=== PATIENT | male | born 1930 | race Caucasian/White ===

== ENCOUNTER 2018-04-19 10:46 | Inpatient (IN) | payer OTHER, BC ==
--- NOTE | 2018-04-19 10:48 | EDPHY ---
H & P Time Seen by Provider: 04/19/18 10:47 HPI/ROS: CHIEF COMPLAINT: Elevated creatinine HISTORY OF PRESENT ILLNESS: Patient called [facility] today because he had hematuria, they came to his house and i-STAT creatinine was 2.3 and he is sent for evaluation. [facility] say he has left lower quadrant abdominal pain but the patient tells me his belly does not hurt, he has no flank pain or abdominal pain, it hurt a little bit when they pressured hard on his left lower quadrant. He otherwise says he feels fine. No dysuria or fever. REVIEW OF SYSTEMS: Eye: no change in vision ENT: no sore throat Cardiac: no chest pain or syncope Pulmonary: no cough or SOB Abdomen: no vomiting, diarrhea, abdominal pain Musculoskeletal: no back pain Skin: no rash or bruising Neuro: no headache Constitutional: no fever : HPI A comprehensive 10 point review of systems is otherwise negative aside from elements mentioned in the history of present illness. 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 Eyes: No scleral icterus. ENT, Mouth: Normal mucous membranes. Respiratory: Normal respiratory effort, breath sounds equal, lungs are clear to auscultation. Cardiovascular: Regular rate and rhythm. Gastrointestinal: Abdomen is soft and non tender. No blood at the urethral meatus. Neurological: Alert, face symmetric, normal motor and sensory in extremities. Skin: No petechiae or bruising. Musculoskeletal: No peripheral edema. Psychiatric: Not agitated. Emergency Department course/MDM: CBC and chemistry, abdominal pelvis CT without IV contrast. Case management to problem solve for his daughter's care. 1113: CT shows bilateral hydronephrosis and large bladder, bladder outlet obstruction; Priyanka. Blanchard catheter placed in the emergency department. Likely acute kidney injury from bilateral renal obstruction. Possibly due to blood clots from UTI, on Xarelto. Constitutional: Initial Vital Signs Temperature (C) 37.1 C 04/19/18 10:50 Heart Rate 64 04/19/18 10:50 Respiratory Rate 16 04/19/18 10:50 Blood Pressure 168/88 H 04/19/18 10:50 O2 Sat (%) 94 04/19/18 10:50 O2 Delivery Mode Room Air Allergies/Adverse Reactions: aminophylline Allergy (Verified 04/19/18 10:50) aspirin Allergy (Verified 04/19/18 10:50) Sulfa (Sulfonamide Antibiotics) Allergy (Verified 04/19/18 10:50) Home Medications: Medication Instructions Recorded Bumetanide [Bumex (*)] 1 mg PO ,04/19/18 Carvedilol [Coreg (*)] 6.25 mg PO BID 04/19/18 Cholecalciferol Vit D3 [Vitamin D3 2,000 units PO HS 04/19/18 2000 units tab (OTC)] Cyanocobalamin [Vitamin B12 (*)] 1,000 mcg PO DAILY@18 04/19/18 Herbals/Supplements -Info Only 1 ea PO DAILY 04/19/18 Potassium Chloride 20 meq PO ,,04/19/18 Rivaroxaban [Xarelto] 20 mg PO HS 04/19/18 Sotalol HCl [Betapace 80 MG (*)] 80 mg PO BID 04/19/18 Valsartan 160 mg PO DAILY 04/19/18 Medical Decision Making - Diagnostics Imaging Results: Imaging Impressions Abdomen/Pelvis CT 04/19/18 10:48 Impression: 1. Enlarged prostate with features of chronic outflow obstruction and marked distention of the urinary bladder, ureters, and renal pelves bilaterally. No calculi identified. 2. Multiple bilateral cortical renal cysts. A 14-mm solid-appearing nodule arises from the posterior cortex of the mid left kidney, indeterminate for complex cystic etiology versus renal cell malignancy. Consider additional imaging with multiphasic CT, MRI, or sonography. Results called to Dr. Jad Newman at 11:20 a.m. Attention: This CT examination is specifically designed to evaluate patients who are clinically suspected of having acute obstructive uropathy. This examination does not use radiographic contrast, and as such, provides only a limited evaluation of the abdomen, pelvis, and retroperitoneum. If there is further clinical suspicion for pathological conditions other than obstructive uropathy, a complete CT evaluation of the abdomen and pelvis utilizing intravenous, oral, and rectal contrast should be considered. Imaging: Discussed imaging studies w/ grease packer Radiologist Differential Diagnosis: Differential for hematuria considered including but not limited to coagulopathy , UTI, renal colic, renal carcinoma or bladder carcinoma Consult/Admit Bed Type: [place] [id number] - Data Points Laboratory Results: Laboratory Results 04/19/18 11:14 04/19/18 11:14 04/19/18 04/19/18 04/19/18 11:14 11:14 11:14 WBC 10.81 10^3/uL H 10^3/uL (3.80-9.50) RBC 4.08 10^6/uL L 10^6/uL (4.40-6.38) Hgb 12.6 g/dL L g/dL (13.7-17.5) Hct 37.4 % L % (40.0-51.0) MCV 91.7 fL fL (81.5-99.8) MCH 30.9 pg pg (27.9-34.1) MCHC 33.7 g/dL g/dL (32.4-36.7) RDW 13.3 % % (11.5-15.2) Plt Count 163 10^3/uL 10^3/uL (150-400) MPV 10.5 fL fL (8.7-11.7) Neut % (Auto) 80.6 % H % (39.3-74.2) Lymph % (Auto) 9.4 % L % (15.0-45.0) [place] % (Auto) 9.1 % % (4.5-13.0) Eos % (Auto) 0.2 % L % (0.6-7.6) Baso % (Auto) 0.3 % % (0.3-1.7) Nucleat RBC Rel Count 0.0 % % (0.0-0.2) Absolute Neuts (auto) 8.72 10^3/uL H 10^3/uL (1.70-6.50) Absolute Lymphs (auto) 1.02 10^3/uL 10^3/uL (1.00-3.00) Absolute Monos (auto) 0.98 10^3/uL H 10^3/uL (0.30-0.80) Absolute Eos (auto) 0.02 10^3/uL L 10^3/uL (0.03-0.40) Absolute Basos (auto) 0.03 10^3/uL 10^3/uL (0.02-0.10) Absolute Nucleated RBC 0.00 10^3/uL 10^3/uL (0-0.01) Immature Gran % 0.4 % % (0.0-1.1) Immature Gran # 0.04 10^3/uL 10^3/uL (0.00-0.10) PT 19.2 SEC H SEC (12.0-15.0) INR 1.60 H (0.83-1.16) APTT 40.0 SEC H SEC (23.0-38.0) Sodium 138 mEq/L mEq/L (135-145) Potassium 4.2 mEq/L mEq/L (3.5-5.2) Chloride 106 mEq/L mEq/L (97-110) Carbon Dioxide 25 mEq/l mEq/l (22-31) Anion Gap 7 mEq/L mEq/L (6-14) BUN 42 mg/dL H mg/dL (7-23) Creatinine 2.3 mg/dL H mg/dL (0.7-1.3) Estimated GFR 27 Glucose 118 mg/dL H mg/dL (70-100) Calcium 8.8 mg/dL mg/dL (8.5-10.4) Urine Color Urine Appearance Urine pH Ur Specific [place] Urine Protein Urine Ketones Urine Blood Urine Nitrate Urine Bilirubin Urine Urobilinogen Ur Leukocyte Esterase Urine RBC Urine WBC Ur Epithelial Cells Urine Glucose 04/19/18 10:55 WBC RBC Hgb Hct MCV MCH MCHC RDW Plt Count MPV Neut % (Auto) Lymph % (Auto) [place] % (Auto) Eos % (Auto) Baso % (Auto) Nucleat RBC Rel Count Absolute Neuts (auto) Absolute Lymphs (auto) Absolute Monos (auto) Absolute Eos (auto) Absolute Basos (auto) Absolute Nucleated RBC Immature Gran % Immature Gran # PT INR APTT Sodium Potassium Chloride Carbon Dioxide Anion Gap BUN Creatinine Estimated GFR Glucose Calcium Urine Color RED Urine Appearance TURBID Urine pH 7.0 (5.0-7.5) Ur Specific [place] 1.011 (1.002-1.030) Urine Protein 2+ H (NEGATIVE) Urine Ketones NEGATIVE (NEGATIVE) Urine Blood 3+ H (NEGATIVE) Urine Nitrate NEGATIVE (NEGATIVE) Urine Bilirubin NEGATIVE (NEGATIVE) Urine Urobilinogen NEGATIVE EU EU (0.2-1.0) Ur Leukocyte Esterase 2+ H (NEGATIVE) Urine RBC 50-182 /hpf H /hpf (0-3) Urine WBC 50-182 /hpf H /hpf (0-3) Ur Epithelial Cells NONE SEEN /lpf /lpf (NONE-1+) Urine Glucose NEGATIVE (NEGATIVE) Medications Given: Discontinued Medications Ceftriaxone Sodium/Dextrose (Rocephin 1 Gm (Premix)) 50 mls @ 100 mls/hr IV EDNOW ONE PRN Reason: Protocol Stop: 04/19/18 11:54 Last Admin: 04/19/18 11:39 Dose: 50 mls Oxycodone HCl (Oxycodone Ir) 5 mg PO EDNOW ONE Stop: 04/19/18 11:38 Last Admin: 04/19/18 11:39 Dose: 5 mg Oxycodone HCl (Oxycodone Ir) 5 mg PO EDNOW ONE Stop: 04/19/18 12:24 Last Admin: 04/19/18 12:26 Dose: 5 mg Departure - Departure Disposition: [facility] Inpatient Acute Clinical Impression: Acute kidney injury, Bladder outlet obstruction Urinary tract infection Qualifiers: Urinary tract infection type: site unspecified Hematuria presence: with hematuria Qualified Code(s): N39.0 - Urinary tract infection, site not specified
[2018-04-19] MEDS ORDERED: oxyCODONE IR 5 MG TAB PO ONE ×2 (11:37→12:23)
[2018-04-19 11:39] LABS: PLATELET COUNT 163 10^3/uL (150-400)
[2018-04-19 11:45] LABS: INR 1.6 (0.83-1.16); PROTIME(PATIENT) 19.2 SEC (12.0-15.0)
[2018-04-19] MEDS ORDERED: LIDOCAINE 2% JELLY 20 ML (UROJECT) UR ONE (14:23)
[2018-04-19] MEDS ORDERED: ONDANSETRON DISINTEGRATING 4 MG TAB PO PRN (14:24)
[2018-04-19] MEDS ORDERED: ONDANSETRON 4 MG/2 ML VIAL IVP PRN (14:24)
[2018-04-19] MEDS ORDERED: NS 1,000 ML IV SCH (14:30)
--- NOTE | 2018-04-19 14:36 | ASMTCMCOM ---
CM Note CM Note Notes: Pt presented to the ED for elevated Creatinine. Pt had called [facility] to his residence for hematuria, they did an iStat and his Cr was 2.3). Pt admitted for MARLEN, hematuria (possibly r/t UTI; pt is on Xarelto), bilateral hydronephrosis, and bladder outlet obstruction. Pt had a Blanchard placed and abdominal CT completed. Pt's PMH includes A-Fib, CHF, HTN, asthma. Pt is from [place], [place] but has been living with and caring for his daughter, Michell ([phone]), at her apartment/condo. Pt states he is Eulalia's primary caregiver due to her morbid obesity, fibromyalgia, etc. Pt states that Eulalia's cousin, Debbie, is coming up from [facility] to help her out during the day today but will not be able to stay with her tonight. Eulalia receives skilled HC RN/PT/OT through [facility] and also has a private [employer] but they only are there during the day. Pt is concerned about being admitted and Eulalia not having anyone at home to help her get in and out of the bed, to the commode, etc. This CM has met Eulalia in the past and assisted her w/coordinating home care assistance, etc. Per pt's request, this CM called Eulalia and discussed that she would probably have to call non-skilled HC agencies and see if anyone was available to help the patient tonight, tomorrow and however long pt might be in the hospital; Eulalia is aware it will be private pay. This CM provided several non-skilled HC agencies' contact information to Eulalia. Pt appreciative of assistance w/contacting an Eulalia . Exact DC needs TBD. PT/OT evals ordered. CM to follow. Date Signed: 04/19/2018 02:36 PM Electronically Signed By:Baylee Banerjee RN
--- NOTE | 2018-04-19 15:45 | GHP ---
DATE OF ADMISSION: 04/19/2018 The patient, pleasant 87-year-old gentleman with a history of systolic heart failure; atrial fibrilla tion, on anticoagulation; and BPH who presents with hematuria he has had over the last couple of days , a little bit of dysuria and pain with urination. He noticed brown urine this morning and then dark er urine later today. He has not had fever or chills. He has had some general malaise. He has continued to take his diuretics, ARB, and blood thinners. About 5 years ago he had some office procedure designed to dilate prostate. It was not a TURP. He d escribes a period of going through a few diapers overnight with what sounds like obstructive incontin ence. REVIEW OF SYSTEMS: Complete 10-point review of systems conducted, negative except as noted in the HP I. PAST MEDICAL HISTORY: 1. Systolic heart failure with an EF that was about 30%, now normalized to 50%. Etiology uncertain. 2. Atrial fibrillation. On anticoagulation. 3. Hypertension. 4. BPH. ALLERGIES: Aminophylline, aspirin, sulfa. HOME MEDICATIONS: Potassium chloride, Bumex, rivaroxaban, valsartan, carvedilol, vitamin D3, cyanoco balamin, and sotalol. 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 He has been in [facility] for last 2 years taking care of his daughter, who needs 24-hour care. He does describe a bit o f caregiver burnout. He used to drink alcohol regularly but quit 5 years ago with the onset of his h eart issues. He does not smoke cigarettes. FAMILY HISTORY: Parents . PHYSICAL EXAM: VITAL SIGNS: Temp 37.1. Blood pressure 168/88. Pulse 64. Breathing 16 times a min pelon; 94% on room air. GENERAL: No acute distress. HEENT: Sclerae anicteric. Oropharynx clear. M ucous membranes are moist. NECK: Supple without lymphadenopathy or JVD. LUNGS: Clear to auscultat ion bilaterally. HEART: S1. S2. ABDOMEN: Soft. Nontender. Nondistended. There is no suprapubi c tenderness. LOWER EXTREMITIES: Without edema. Calves are nontender. GI: Blanchard has pink urine i n it without evidence of clots. LABS: Sodium 138, potassium 4.2, chloride 106, bicarb 25, BUN 42, creatinine 2.3 with unknown baseli ne, glucose 118. INR is 1.6. UA shows 2+ leukocyte esterase, 50-180 red cells, 50-180 white cells. White count 10.8, hematocrit 37, platelets are 163,000. Abdominal CT shows dilated urinary system with evidence of chronic urinary obstruction. There are mu ltiple renal cysts and a solid 14 mm mass on the posterior cortex of the mid left kidney. I discusse d the case with Dr. Jad Newman. ASSESSMENT AND PLAN: An 87-year-old gentleman presents with hematuria, urinary obstruction, acute ki dney injury, and solid renal mass. 1. Obstructive uropathy. I think this is the source of his kidney injury probably in the setting of ongoing diuretic and angiotensin receptor natalie therapy. We will hold his diuretics, hold his ang iotensin receptor natalie. Given gentle intravenous fluids, and Blanchard has been placed. We will repe at the value in the morning. I suspect that the etiology is a clot. He currently has a 1-way Blanchard in place that is draining good urine. I have instructed the nurse to flush it 3 times every shift, a nd we will follow. If it stops working, it is probably reasonable to pursue 3-way Blanchard. 2. Urinary tract infection. The patient has pyuria. This is possibly the source of his genitourina ry bleeding in the setting of blood thinners. He does describe some irritative voiding symptoms. We will go ahead and give him ceftriaxone. 3. Heart failure. The patient has a history of systolic heart failure that is well treated and comp ensated. We will hold his diuretic and angiotensin receptor natalie, but I suspect we will resume th em. In the meantime, will be judicious with intravenous fluids. 4. Renal mass is concerning for cancer. The patient needs a contrasted CT. It cannot be done at th is point in time. I have discussed this at length with him. 5. Prophylaxis. Hold pharmacologic prophylaxis. DISPOSITION: Inpatient status. /[id number]/MODL
[2018-04-19] MEDS: CYANO/VITAMIN B12 1000 MCG TAB PO SCH (17:32)
[2018-04-19] MEDS: ACETAMINOPHEN 325 MG TAB PO PRN (20:22)
[2018-04-19] MEDS: CARVEDILOL 6.25 MG TAB PO SCH (20:24)
[2018-04-19] MEDS: CHOLECALCIFEROL VIT D3 2,000 UNITS TAB/CAP PO SCH (20:25)
[2018-04-19] MEDS: SOTALOL HCL 80 MG TAB PO SCH (20:25)
[2018-04-20] MEDS: ACETAMINOPHEN 325 MG TAB PO PRN (04:13)
[2018-04-20 05:44] LABS: PLATELET COUNT 159 10^3/uL (150-400)
[2018-04-20 05:50] LABS: INR 1.19 (0.83-1.16); PROTIME(PATIENT) 15.3 SEC (12.0-15.0)
[2018-04-20] MEDS: SOTALOL HCL 80 MG TAB PO SCH ×2 (08:05→20:52)
[2018-04-20] MEDS: CARVEDILOL 6.25 MG TAB PO SCH ×2 (08:05→20:54)
[2018-04-20] MEDS ORDERED: Herbals/Supplements -Info Only PO SCH (09:00)
[2018-04-20] MEDS: HYDROmorphONE/DILAUDID 1 MG/ML INJ IVP PRN ×4 (09:51→22:28)
[2018-04-20] MEDS ORDERED: LIDOCAINE 2% JELLY 20 ML (UROJECT) UR ONE (09:52)
--- NOTE | 2018-04-20 10:01 | PDMN ---
Medical Necessity Medical necessity: Pt meets IP criteria as of 04/19/18 per MD and MCG M-300 (UTI) ; est los > 2 mn for ongoing tx and management of UTI with pyuria, hematuria, MARLEN, urinary obstruction and solid renal mass; requiring IV ABX, muller catheter with need for frequent irrigation, medication management, serial labs, and management of chronic conditions including CHF, afib on AC, HTN, and BPH.
--- NOTE | 2018-04-20 10:07 | HOSPPROG ---
Hospitalist Progress Note Assessment/Plan: 87 yo M w obstructive uropathy, probable uti, bleeding bleeding: chely source of obstruction still w clots place three way muller w [facility] urology eval 04/21 if not clearing ultimately needs cystoscopy to r/u bladder malignancy MARLEN: obtrcutive plus lasix/arb euvolemic repeat u/s today to eval for ongoing hydro infection: pyuria: ceftriaxone day 2 sCHF: hold IVF continue to hold lasix and ARB restart as allowed by renal function AF: clinically in sinus dispo: inpt Subjective: still bloody urine, clots. blader spasms Objective: Vital Signs Temp Pulse Resp BP Pulse Ox 36.5 C 60 16 148/75 H 94 04/20/18 07:40 04/20/18 07:40 04/20/18 07:40 04/20/18 07:40 04/20/18 07:40 Laboratory Results 04/20/18 04:55 04/20/18 04:55 04/19/18 04/20/18 04/21/18 05:59 05:59 05:59 Intake Total 850 Output Total 4300 Balance -3450 PT 15.3 SEC (12.0-15.0) H 04/20/18 04:55 INR 1.19 (0.83-1.16) H 04/20/18 04:55 - Physical Exam Constitutional: no apparent distress, appears nourished Eyes: PERRL, anicteric sclera Ears, Nose, Mouth, Throat: moist mucous membranes, hearing normal Cardiovascular: regular rate and rhythym, no murmur, rub, or gallop Respiratory: no respiratory distress, no rales or rhonchi Gastrointestinal: normoactive bowel sounds, soft, non-tender abdomen Genitourinary: muller in urethra, other ( punch colored urine) Skin: warm, normal color Musculoskeletal: full muscle strength, no muscle tenderness Neurologic: AAOx3 Psychiatric: interacting appropriately Lymph, Heme, Immunologic: no cervical LAD ICD10 Worksheet Patient Problems: Problems Problem Status Onset Acute kidney injury Acute Bladder outlet obstruction Acute Urinary tract infection Acute
[2018-04-20] MEDS: CYANO/VITAMIN B12 1000 MCG TAB PO SCH (18:32)
[2018-04-20] MEDS: CHOLECALCIFEROL VIT D3 2,000 UNITS TAB/CAP PO SCH (20:54)
[2018-04-21] MEDS: HYDROmorphONE/DILAUDID 1 MG/ML INJ IVP PRN ×3 (02:31→21:04)
[2018-04-21] MEDS: OPIUM/BELLADONNA ALKALO SUPP PR PRN ×2 (02:42→10:07)
[2018-04-21] MEDS: CARVEDILOL 6.25 MG TAB PO SCH ×2 (08:24→21:04)
[2018-04-21] MEDS: SOTALOL HCL 80 MG TAB PO SCH ×2 (08:25→21:05)
[2018-04-21 09:34] LABS: PLATELET COUNT 152 10^3/uL (150-400)
--- NOTE | 2018-04-21 10:49 | HOSPPROG ---
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 muller bag w pink liquid w clots Objective: Vital Signs Temp Pulse Resp BP Pulse Ox 36.4 C 62 16 154/70 H 94 04/21/18 07:35 04/21/18 07:35 04/21/18 07:35 04/21/18 07:35 04/21/18 07:35 Laboratory Results 04/21/18 09:25 04/21/18 09:25 04/20/18 04/21/18 04/22/18 05:59 05:59 05:59 Intake Total 850 Output Total 4300 3350 Balance -3450 -3350 PT 15.3 SEC (12.0-15.0) H 04/20/18 04:55 INR 1.19 (0.83-1.16) H 04/20/18 04:55 - Physical Exam Constitutional: no apparent distress, appears nourished Eyes: PERRL, anicteric sclera Ears, Nose, Mouth, Throat: moist mucous membranes, hearing normal Cardiovascular: regular rate and rhythym, no murmur, rub, or gallop Respiratory: no respiratory distress, no rales or rhonchi Gastrointestinal: normoactive bowel sounds, soft, non-tender abdomen Genitourinary: no bladder fullness, muller in urethra Skin: warm, normal color Musculoskeletal: full muscle strength ICD10 Worksheet Patient Problems: Problems Problem Status Onset Acute kidney injury Acute Bladder outlet obstruction Acute Urinary tract infection Acute
--- NOTE | 2018-04-21 11:36 | ASMTCMCOM ---
CM Note CM Note Notes: CM met with pt. Reports he is feeling better and reports concerns about uncertainty of plans with daughter moving forward. Pt reports Baylee CM from the ED was helpful in arranging home care for his daughter who needs 24hr care. Pt reports he started thinking more about his and her needs and is appreciative of support. CM provided education about Palliative Care and pt is very interested. CM requested order from . OT Rec: home with homecare vs SNF PT: pending eval Plan: HHC vs SNF with Palliative Care Date Signed: 04/21/2018 11:35 AM Electronically Signed By:YOGESH Gonsales
--- NOTE | 2018-04-21 12:27 | GCON ---
DATE OF CONSULTATION: 04/21/2018 REASON FOR CONSULT: Bilateral hydronephrosis and urinary retention with gross hematuria. Pleasant 87-year-old male who comes into the hospital with hematuria and a little bit of dysuria over the last couple of days. Some report of some mild abdominal discomfort initially, although later de nied. Denied fever or chills. He does report that he had some sort of episode of urinary retention requiring a catheter post general anesthesia 5 years ago. This was addressed by a urologist in [facility]. The patient did not report any procedures to me that occurred due to this, but was told that he had a big prostate. Pertinently, he does take anticoagulation for systolic heart failure and atri al fibrillation, but he has been off this now for several days. PAST MEDICAL HISTORY: Systolic heart failure with ejection fracture of 30%, now 50%; atrial fibrilla tion, was anticoagulated, not currently; hypertension; BPH. ALLERGIES: Aminophylline, aspirin, sulfa. HOME MEDICATIONS: Potassium chloride, Bumex, rivaroxaban, valsartan, carvedilol, vitamin D3, sotalol . 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 Lives here in [place]. Denies smoking. FAMILY HISTORY: Not pertinent. REVIEW OF SYSTEMS: 10-point review of systems negative, except as mentioned in the HPI. PHYSICAL EXAM: VITAL SIGNS: Blood pressure 150/75, heart rate 65, respirations 18, O2 97 on room ai r, temperature 36.4. GENERAL: This is a well-developed, well-nourished male in no acute distress. HEENT: Normocephalic, atraumatic. Extraocular movements intact. NECK: Supple. No lymphadenopathy . Trachea midline. RESPIRATORY: No accessory respiratory muscle use. CARDIAC: Regular rate and r hythm at time of exam. No lower extremity edema. No obvious JVD. ABDOMEN: Soft, nondistended, non tender to palpation. No hepatosplenomegaly. GI: No CVA tenderness. No bladder distention. He has red urine with debris in bag. His nurse describes a sort of constant debris in bag over the last da y. The patient has reportedly passed clots and has some abdominal/bladder pain consistent with a spa sm when he passes a clot. INTEGUMENT: No obvious rashes or lesions. NEURO: The patient was alert and oriented. Affect appropriate to situation. MUSCULOSKELETAL: He was examined while supine, but moving upper extremities without difficulty. LABS: His white blood cell count is 9.47, hemoglobin 12.1, hematocrit 36.2, platelets 152. Coagulat ion: Currently, his INR is 1.19; it was 1.6 on admission. Chemistry: Sodium 141, potassium 3.1, ch loride 110, carbon dioxide 23, anion gap 8, BUN 32, creatinine 1.8, glucose 168, calcium 8.3. Prelim inary urine culture is negative. I personally reviewed a CT of abdomen and pelvis which showed bilateral hydronephrosis with a grossly distended bladder and a large prostate. There were multiple cysts in the kidneys, with a 14 mm artie d-appearing nodule in the left kidney. This was further seen on ultrasound that I personally reviewe d myself along with Dr. Matthews, but is of uncertain etiology at this point. Ultrasound with Blanchard cat heter in place shows consistent bilateral hydronephrosis. No remarks were made about clots in the bl adder. It does appear the patient has a thickened bladder wall upon our review of the ultrasound. ASSESSMENT: Gross hematuria, urinary retention, hydronephrosis. PLAN: After discussion of this case and review of the images with Dr. Matthews, recommend patient have Interventional Radiology place percutaneous nephrostomy tubes bilaterally. May consider removal of c atheter if creatinine normalizes in an attempt to see if we can get hematuria to resolve. Discussed the case with patient and likelihood that he will need a possible procedure of the prostate down the road. We will further address question of renal nodule once acute situation has been addressed. /[id number]/MODL
[2018-04-21] MEDS ORDERED: CEFAZOLIN 1 GM/DEXTROSE/50 ML BAG IV ONE (15:42)
--- NOTE | 2018-04-21 16:13 | PDANEPAE ---
ANE History of Present Illness 87 yo with ureteral obstruction ANE Past Medical History - Cardiovascular History Hx CHF / Valvular Disease: Yes - Pulmonary History Hx Oxygen in Use at Home: No Hx Sleep Apnea: No Sleep Apnea Screening Result - Last Documented: Positive - Endocrine History Hx Diabetes: No - Chronic Pain History Chronic Pain: No ANE Review of Systems Review of Systems: ANE Patient History - Allergies Allergies/Adverse Reactions: aminophylline Allergy (Verified 04/19/18 10:50) aspirin Allergy (Verified 04/19/18 10:50) Sulfa (Sulfonamide Antibiotics) Allergy (Verified 04/19/18 10:50) - Home Medications Home Medications: Bumetanide [Bumex (*)] 1 mg PO 04/19/18 [Last Taken 04/18/18] Carvedilol [Coreg (*)] 6.25 mg PO BID 04/19/18 [Last Taken 04/18/18] Cholecalciferol Vit D3 [Vitamin D3 2000 units tab (OTC)] 2,000 units PO HS 04/19 [Last Taken 04/18/18] Cyanocobalamin [Vitamin B12 (*)] 1,000 mcg PO DAILY@18 04/19/18 [Last Taken ] Herbals/Supplements -Info Only 1 ea PO DAILY 04/19/18 [Last Taken Unknown] Potassium Chloride 20 meq PO ,,04/19/18 [Last Taken 04/18/18] Rivaroxaban [Xarelto] 20 mg PO HS 04/19/18 [Last Taken 04/18/18] Sotalol HCl [Betapace 80 MG (*)] 80 mg PO BID 04/19/18 [Last Taken 04/18/18] Valsartan 160 mg PO DAILY 04/19/18 [Last Taken 04/18/18] - Anes Hx Anes Hx: no prior problems - Smoking Hx Smoking Status: Former smoker - Alcohol Use Alcohol Use: None ANE Labs/Vital Signs - Labs Result Diagrams: 04/21/18 09:25 04/21/18 09:25 - Vital Signs Blood Pressure: 160/82 Heart Rate: 62 Respiratory Rate: 16 O2 Sat (%): 95 Height: 175.26 cm Weight: 94.347 kg ANE Physical Exam - Airway Neck exam: FROM Mallampati Score: Class 2 - Pulmonary Pulmonary: no respiratory distress - Cardiovascular Cardiovascular: regular rate and rhythym - ASA Status ASA Status: III ANE Anesthesia Plan Anesthesia Plan: MAC
[2018-04-21] MEDS ORDERED: fentaNYL 100 MCG/2 ML INJ ONE (16:26)
[2018-04-21] MEDS ORDERED: PROPOFOL/EMULSION 500 MG/50 ML BOTTLE IV ONE (16:27)
[2018-04-21] MEDS ORDERED: MIDAZOLAM 2 MG/2 ML VIAL ONE (16:32)
[2018-04-21] MEDS ORDERED: LIDOCAINE 1% 300 MG/30 ML SDV ONE (17:47)
[2018-04-21] MEDS ORDERED: IOPAMIDOL (ISOVUE-370) 150 ML BTL IV ONE (17:48)
--- NOTE | 2018-04-21 17:51 | PDRADPN ---
Radiology Procedure Note Date of Procedure: 04/21/18 Radiologist: Edinson Main Anesthesia: IV Sedation Pre-op Diagnosis: hydronephrosis Post-op Diagnosis: same Procedure: bilateral nephrostomy tubes Inf/Abcess present in the surg proc area at time of surgery?: No
[2018-04-21] MEDS ORDERED: PROMETHAZINE HCL 25 MG/ML INJ IVP PRN (18:02)
[2018-04-21] MEDS ORDERED: NALOXONE HCL 0.4 MG/ML INJ IVP PRN (18:02)
[2018-04-21] MEDS ORDERED: fentaNYL 100 MCG/2 ML INJ IVP PRN (18:02)
--- NOTE | 2018-04-21 18:05 | POSTANESTH ---
Post Anesthetic Evaluation Cardiovascular Status: Normal, Stable Respiratory Status: Normal, Stable Level of Consciousness/Mental Status: Can Participate in Eval Pain Control: Adequate, Prn Tx Ordered Nausea/Vomiting Control: Adequate, Prn Tx Ordered Complications Possibly Related to Anesthesia: None Noted
[2018-04-21] MEDS: CYANO/VITAMIN B12 1000 MCG TAB PO SCH (19:26)
[2018-04-21] MEDS: CHOLECALCIFEROL VIT D3 2,000 UNITS TAB/CAP PO SCH (21:05)
[2018-04-22] MEDS: HYDROmorphONE/DILAUDID 1 MG/ML INJ IVP PRN ×3 (00:58→10:40)
[2018-04-22 06:00] LABS: PLATELET COUNT 142 10^3/uL (150-400)
[2018-04-22] MEDS: CARVEDILOL 6.25 MG TAB PO SCH ×2 (08:33→20:51)
[2018-04-22] MEDS: SOTALOL HCL 80 MG TAB PO SCH (08:34)
[2018-04-22] MEDS ORDERED: PNEUMOC 13-VAL CONJ-DIP CRM/PF 0.5 ML SYR (PREVNAR 13) IM ONE (12:48)
--- NOTE | 2018-04-22 13:57 | SOAPPROG ---
SOAP Progress Note Assessment/Plan: Assessment: Gross hematuria/bladder spasms, hydronephrosis and MARLEN Plan: Will continue to monitor Cr with placement of neph tubes. Discussed case with Dr Matthews and will order bladder US to assess for clot vs hemorrhagic cystitis. 04/22/18 13:55 Subjective: Tolerating tubes. Reports bladder spasms q 15 minutes with passage of blood in bag. Objective: Vital Signs Temp Pulse Resp BP Pulse Ox 36.7 C 66 16 110/84 H 95 04/22/18 12:00 04/22/18 12:00 04/22/18 12:00 04/22/18 12:00 04/22/18 12:00 Laboratory Results 04/22/18 05:40 04/22/18 05:40 04/21/18 04/22/18 04/23/18 05:59 05:59 05:59 Intake Total 850 Output Total 3350 2485 2600 Balance -3350 -1635 -2600 PT 15.3 SEC (12.0-15.0) H 04/20/18 04:55 INR 1.19 (0.83-1.16) H 04/20/18 04:55 Physical Exam - Physical Exam General Appearance: alert, no apparent distress EENT: normal ENT inspection Neck: full range of motion Respiratory: normal breath sounds Abdomen: other (neph tubes with red urine in bags) Male Genitalia: other (light pink urine without clots in muller) ICD10 Worksheet Patient Problems: Problems Problem Status Onset Acute kidney injury Acute Bladder outlet obstruction Acute Urinary tract infection Acute
--- NOTE | 2018-04-22 14:33 | HOSPPROG ---
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 s/p b/l nephrostomy tubes Objective: Vital Signs Temp Pulse Resp BP Pulse Ox 36.7 C 66 16 110/84 H 95 04/22/18 12:00 04/22/18 12:00 04/22/18 12:00 04/22/18 12:00 04/22/18 12:00 Laboratory Results 04/22/18 05:40 04/22/18 05:40 04/21/18 04/22/18 04/23/18 05:59 05:59 05:59 Intake Total 850 Output Total 3350 2485 2600 Balance -3350 -1635 -2600 PT 15.3 SEC (12.0-15.0) H 04/20/18 04:55 INR 1.19 (0.83-1.16) H 04/20/18 04:55 - Physical Exam Constitutional: no apparent distress, appears nourished Eyes: PERRL, anicteric sclera Ears, Nose, Mouth, Throat: moist mucous membranes, hearing normal Cardiovascular: regular rate and rhythym, no murmur, rub, or gallop Respiratory: no respiratory distress, no rales or rhonchi Gastrointestinal: normoactive bowel sounds, soft, non-tender abdomen Genitourinary: No muller in urethra Skin: warm, normal color Musculoskeletal: full muscle strength Neurologic: AAOx3 ICD10 Worksheet Patient Problems: Problems Problem Status Onset Acute kidney injury Acute Bladder outlet obstruction Acute Urinary tract infection Acute
[2018-04-22] MEDS: POLYETHYLENE GLYCOL 3350 17 GM PKT PO SCH ×3 (15:33→20:51)
[2018-04-22] MEDS: CYANO/VITAMIN B12 1000 MCG TAB PO SCH (18:30)
[2018-04-22] MEDS: CHOLECALCIFEROL VIT D3 2,000 UNITS TAB/CAP PO SCH (20:51)
[2018-04-23] MEDS ORDERED: BISACODYL 5 MG EC TAB PO ONE (05:49)
[2018-04-23] MEDS: CARVEDILOL 6.25 MG TAB PO SCH ×2 (09:05→22:04)
--- NOTE | 2018-04-23 10:41 | SOAPPROG ---
SOAP Progress Note Assessment/Plan: Assessment: Acute kidney injury Acute Hydronephrosis managed by neph tubes and creat stable Bladder outlet obstruction Acute cath out and will assess Friday on function Plan: continue care, assess Friday AM 04/23/18 16:19 Subjective: doing well, cath out Objective: Vital Signs Temp Pulse Resp BP Pulse Ox 36.6 C 64 16 154/82 H 92 04/23/18 08:00 04/23/18 08:00 04/23/18 08:00 04/23/18 08:00 04/23/18 08:00 Laboratory Results 04/22/18 05:40 04/23/18 05:28 04/22/18 04/23/18 04/24/18 05:59 05:59 05:59 Intake Total 850 500 Output Total 2485 5925 625 Balance -1635 -5425 -625 PT 15.3 SEC (12.0-15.0) H 04/20/18 04:55 INR 1.19 (0.83-1.16) H 04/20/18 04:55 Physical Exam - Physical Exam General Appearance: alert Neck: supple Respiratory: No respiratory distress Cardiac/Chest: regular rate, rhythm Abdomen: soft Back: No CVA tenderness Neuro/Psych: alert, oriented x 3 ICD10 Worksheet Patient Problems: Problems Problem Status Onset Acute kidney injury Acute Bladder outlet obstruction Acute Urinary tract infection Acute
--- NOTE | 2018-04-23 10:47 | HOSPPROG ---
Hospitalist Progress Note Assessment/Plan: 87 yo M w obstructive uropathy, probable uti, bleeding bleeding: muller out per dr fermin, likely source is hemorrhagic cystitis 1. clamp nephrostomy tubes 2. follow ability to urinate 3. 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 > 4 METS to or w/out further workup or intervention MARLEN: obtrcutive plus lasix/arb euvolemic repeat u/s today to eval for ongoing hydro infection: pyuria: ceftriaxone day 2 sCHF: hold IVF continue to hold lasix and ARB restart as allowed by renal function AF: clinically in sinus holding AC dispo: inpt Subjective: case d/w dr fermin Objective: Vital Signs Temp Pulse Resp BP Pulse Ox 36.6 C 64 16 154/82 H 92 04/23/18 08:00 04/23/18 08:00 04/23/18 08:00 04/23/18 08:00 04/23/18 08:00 Laboratory Results 04/22/18 05:40 04/23/18 05:28 04/22/18 04/23/18 04/24/18 05:59 05:59 05:59 Intake Total 850 500 Output Total 1925 5934 625 Balance -1635 -5425 -625 PT 15.3 SEC (12.0-15.0) H 04/20/18 04:55 INR 1.19 (0.83-1.16) H 04/20/18 04:55 - Physical Exam Constitutional: no apparent distress, appears nourished Eyes: PERRL, anicteric sclera Ears, Nose, Mouth, Throat: moist mucous membranes, hearing normal Cardiovascular: regular rate and rhythym, no murmur, rub, or gallop Respiratory: no respiratory distress, no rales or rhonchi Gastrointestinal: normoactive bowel sounds, soft, non-tender abdomen Genitourinary: other (muller out. no bladder spasms. scant pink urine in nephrostomy tubes) Skin: warm, normal color Musculoskeletal: full muscle strength, no muscle tenderness Neurologic: AAOx3 ICD10 Worksheet Patient Problems: Problems Problem Status Onset Acute kidney injury Acute Bladder outlet obstruction Acute Urinary tract infection Acute
--- NOTE | 2018-04-23 14:38 | ASMTCMCOM ---
CM Note CM Note Notes: Plan of care reviewed with patient. He is an 87 year old male presenting with MARLEN secondary to hydronephrosis, Nephrostomy tubes place kidney function improving. 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 I spoke with Eulalia and she requested [facility] referral be placed and that her own private PT would provide HHC as well. Per PT and OT HHC is recommended upon discharge, referral in allscripts to [facility] per request. After interviewing the patient, no clear reason for palliative care was indicated at this point as he reports that he feels his overall health has improved in the past 2 years caring for his daughter. Will discuss with Hospital medicine. Plan: Home with [facility] RN when medically cleared for discharge to home. Date Signed: 04/23/2018 02:37 PM Electronically Signed By:Susan Stinson RN
[2018-04-23] MEDS: CYANO/VITAMIN B12 1000 MCG TAB PO SCH (17:28)
[2018-04-23] MEDS: CHOLECALCIFEROL VIT D3 2,000 UNITS TAB/CAP PO SCH (22:04)
[2018-04-23] MEDS ORDERED: LIDOCAINE 2% JELLY 6 ML TOPICAL SYR TP ONE (23:45)
[2018-04-24] MEDS ORDERED: NS 1,000 ML IV SCH (03:00)
[2018-04-24] MEDS: HYDROmorphONE/DILAUDID 1 MG/ML INJ IVP PRN (03:16)
--- NOTE | 2018-04-24 08:24 | SOAPPROG ---
SOAP Progress Note Assessment/Plan: Assessment: Acute kidney injury Acute Hydronephrosis managed by neph tubes and creat stable Bladder outlet obstruction Acute cath out and replaced Plan: continue care, DC per hospitalist and see in office next week for further assessment 04/24/18 08:23 Subjective: chart reviewed Objective: Vital Signs Temp Pulse Resp BP Pulse Ox 36.8 C 71 16 165/85 H 93 04/24/18 03:34 04/24/18 03:34 04/24/18 03:34 04/24/18 03:34 04/24/18 03:34 Laboratory Results 04/22/18 05:40 04/23/18 05:28 04/23/18 04/24/18 04/25/18 05:59 05:59 05:59 Intake Total 500 450 Output Total 5947 1275 Balance -5425 -825 PT 15.3 SEC (12.0-15.0) H 04/20/18 04:55 INR 1.19 (0.83-1.16) H 04/20/18 04:55 Physical Exam - Physical Exam General Appearance: other ICD10 Worksheet Patient Problems: Problems Problem Status Onset Acute kidney injury Acute Bladder outlet obstruction Acute Urinary tract infection Acute
[2018-04-24] MEDS: CARVEDILOL 6.25 MG TAB PO SCH ×2 (09:40→20:53)
[2018-04-24] MEDS: ACETAMINOPHEN 325 MG TAB PO PRN (09:41)
--- NOTE | 2018-04-24 14:15 | HOSPPROG ---
Hospitalist Progress Note Assessment/Plan: 87 yo M w obstructive uropathy, probable uti, bleeding. First encounter, chart reviewed. 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 Feeling well. No other complaints. Objective: Vital Signs Temp Pulse Resp BP Pulse Ox 36.8 C 72 14 156/102 H 93 04/24/18 11:50 04/24/18 11:50 04/24/18 11:50 04/24/18 11:50 04/24/18 11:50 Laboratory Results 04/22/18 05:40 04/23/18 05:28 04/23/18 04/24/18 04/25/18 05:59 05:59 05:59 Intake Total 500 450 Output Total 5925 1275 700 Balance -5425 -825 -700 PT 15.3 SEC (12.0-15.0) H 04/20/18 04:55 INR 1.19 (0.83-1.16) H 04/20/18 04:55 - Physical Exam Constitutional: no apparent distress, appears nourished, not in pain Eyes: PERRL, anicteric sclera, EOMI Ears, Nose, Mouth, Throat: moist mucous membranes, hearing normal, ears appear normal Cardiovascular: No JVD, No tachycardia, No edema Respiratory: no respiratory distress, no rales or rhonchi, reduced air movement Gastrointestinal: normoactive bowel sounds, No tenderness, No ascites Genitourinary: muller in urethra, other (nephro tube) Skin: warm, normal color, No mottled Musculoskeletal: normal joint ROM, no joint effusions, generalized weakness Neurologic: AAOx3 Psychiatric: interacting appropriately, not anxious, not encephalopathic ICD10 Worksheet Patient Problems: Problems Problem Status Onset Urinary tract infection Acute Acute kidney injury Acute Bladder outlet obstruction Acute
--- NOTE | 2018-04-24 14:20 | ASMTCMCOM ---
CM Note CM Note Notes: Pts case discussed w/ Carla Benavidez NP. Marley from [facility] stopped by and visited w/ pt. Pt still has his tubes in. Pt will not d/c until they are removed. Pts daughter is current w/ [facility] as well. Caregivers are taking care of daughter while pt is in the hospital. CM to follow. Plan: Allemilie NARANJO; RN, OT Date Signed: 04/24/2018 02:19 PM Electronically Signed By:YOGESH Reid
[2018-04-24] MEDS: CYANO/VITAMIN B12 1000 MCG TAB PO SCH (17:55)
[2018-04-24] MEDS: CHOLECALCIFEROL VIT D3 2,000 UNITS TAB/CAP PO SCH (20:53)
[2018-04-25] MEDS: CARVEDILOL 6.25 MG TAB PO SCH ×2 (09:31→20:39)
--- NOTE | 2018-04-25 13:07 | HOSPPROG ---
Hospitalist Progress Note Assessment/Plan: 87 yo M w obstructive uropathy, probable uti, bleeding. 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 No specific issues. Objective: Vital Signs Temp Pulse Resp BP Pulse Ox 36.8 C 75 18 147/76 H 95 04/25/18 12:00 04/25/18 12:00 04/25/18 12:00 04/25/18 12:00 04/25/18 12:00 Laboratory Results 04/22/18 05:40 04/23/18 05:28 04/24/18 04/25/18 04/26/18 05:59 05:59 05:59 Intake Total 450 650 Output Total 1275 2345 Balance -825 -1695 PT 15.3 SEC (12.0-15.0) H 04/20/18 04:55 INR 1.19 (0.83-1.16) H 04/20/18 04:55 - Physical Exam Constitutional: appears nourished, not in pain, chronically ill appearing Eyes: PERRL, anicteric sclera, EOMI Ears, Nose, Mouth, Throat: moist mucous membranes, hearing normal, ears appear normal Cardiovascular: edema, No JVD, No tachycardia Respiratory: no respiratory distress, no rales or rhonchi, reduced air movement Gastrointestinal: normoactive bowel sounds, No tenderness, No ascites Skin: warm, normal color, No mottled Musculoskeletal: normal joint ROM, no joint effusions, generalized weakness Neurologic: AAOx3 Psychiatric: interacting appropriately, not anxious, not encephalopathic ICD10 Worksheet Patient Problems: Problems Problem Status Onset Urinary tract infection Acute Acute kidney injury Acute Bladder outlet obstruction Acute
--- NOTE | 2018-04-25 16:28 | SOAPPROG ---
SOAP Progress Note Assessment/Plan: Assessment: Bladder outlet obstruction with bilateral hydronephrosis likely 2/2 prostatomegaly. Hematuria, new, now resolved. MARLEN - Cr trended down/?stabilized around 1.8 PCNTs now out. Plan: OK to DC in morning as long as no acute issues after PCNTs removed. Monitor UOP, monitor for flank pain or any other changes in status. Change gauze PRN saturation. OK to remove dressing in 2 days or once sites stop draining urine. Follow up for cystoscopy as outpatient. 04/25/18 16:24 04/25/18 16:30 Subjective: PCNTs claped for 6 hrs, no pain reported. Making good urine. Objective: Vital Signs Temp Pulse Resp BP Pulse Ox 36.4 C 76 16 144/71 H 94 04/25/18 15:09 04/25/18 15:09 04/25/18 15:09 04/25/18 15:09 04/25/18 15:09 Laboratory Results 04/22/18 05:40 04/23/18 05:28 04/24/18 04/25/18 04/26/18 05:59 05:59 05:59 Intake Total 450 650 450 Output Total 1275 2345 700 Balance -825 -1695 -250 PT 15.3 SEC (12.0-15.0) H 04/20/18 04:55 INR 1.19 (0.83-1.16) H 04/20/18 04:55 Gen NAD A*O : urethral muller in place, urine clear paxton yellow, has stat lock. PCNT removed intact, gauze/tegaderm placed atop sites, patient tolerated removal well. - Pending Discharge Pending Discharge Within 24 Hours: Yes Pending Discharge Date: 04/26/18 Pending Discharge Time: 11:00 ICD10 Worksheet Patient Problems: Problems Problem Status Onset Acute kidney injury Acute Bladder outlet obstruction Acute Urinary tract infection Acute
[2018-04-25] MEDS: CYANO/VITAMIN B12 1000 MCG TAB PO SCH (18:00)
[2018-04-25] MEDS: BUMETANIDE 1 MG TAB PO SCH (18:00)
[2018-04-25] MEDS: CHOLECALCIFEROL VIT D3 2,000 UNITS TAB/CAP PO SCH (20:39)
[2018-04-26 07:41] VITALS: BP 149/79
[2018-04-26] MEDS: BUMETANIDE 1 MG TAB PO SCH (08:51)
[2018-04-26] MEDS: CARVEDILOL 6.25 MG TAB PO SCH (08:51)
--- NOTE | 2018-04-26 09:50 | PDIAF ---
- Diagnosis Diagnosis: urinary obstruction Code Status: Do Not Resuscitate - Medication Management Discharge Medications: electronically signed and located in the Home Medication List. PICC Care - Routine: N/A - Orders Services needed: Home Care, Registered Nurse, Physical Therapy, Occupational Therapy Home Care Face to Face: I certify that this patient was under my care and that I had the required [id number] encounter meeting the encounter requirements on the discharge day. My findings support the fact that the patient is homebound as defined in Home Care Face to Face Continued: CMS Chapter 7 Medicare Benefits Manual 30.1.1 , The condition of the patient is such that there exists a normal inability to leave home and consequently, leaving home would require a considerable and taxing effort. Diet Recommendation: no restrictions on diet - Follow Up Care Current Providers and Referrals: Rachel Argueta MD [Medical Doctor] - Patient,NotPresent [Unknown] - As per Instructions
[2018-04-26] MEDS ORDERED: POTASSIUM CL 20 MEQ TAB PO SCH (10:00)
--- NOTE | 2018-04-26 10:27 | GDS ---
DISCHARGE DIAGNOSES: 1. Bladder outlet obstruction. 2. Hematuria. 3. Bilateral hydronephrosis. 4. Prostatomegaly. 5. Acute kidney injury. CONSULTATIONS: Urology. STUDIES/PROCEDURES: 1. Nephrostomy tube placement. 2. Ultrasound. PHYSICAL EXAM: GENERAL: The patient is alert. VITAL SIGNS: Afebrile at 36.9, pulse 70, respirator y rate 16, blood pressure is 149/79, saturating greater than 90% on room air. I have seen and evalua felecia the patient on the day of discharge. HOSPITAL COURSE: Patient is a very rajni 87-year-old male who presented to the emergency room with complaints of hematuria. He was evaluated and diagnosed with: 1. Bladder outlet obstruction. During this hospitalization, he received bilateral nephrostomy tubes , as well as a Blanchard catheter. A voiding trial was attempted; however, the patient has failed, his n ephrostomy tubes have been removed and his catheter will remain in place. He will follow up in the o utpatient setting with Dr. Argueta to further evaluate for further workup and needs. 2. Bilateral hydronephrosis. This is in the setting of obstruction. This has resolved. 3. Prostatomegaly. Again, he will follow up with Dr. Argueta to evaluate further intervention mackenzie anted. 4. Hematuria. This has resolved. 5. Acute kidney injury. This is in the setting of outlet obstruction. This has stabilized and impr antonio. 6. Hypokalemia. His potassium is being replaced. 7. Urinary tract infection. He has been treated with 5 days of antibiotic therapy. 8. History of systolic congestive heart failure. He has no signs of fluid overload at time of dispo sition. 9. History of atrial fibrillation. His Xarelto has been re-initiated. DISPOSITION: He will be discharged home with home health care. FOLLOWUP: Followup will be with his primary care physician, as well as Dr. Argueta in the next 2 to 3 days for further evaluation and likely cystoscopy. PENDING STUDIES: There are no pending studies. DISCHARGE MEDICATIONS: Please refer to EMR form. [facility]. TIME SPENT: I spent greater than 35 minutes in the care, coordination, and management of the patient 's discharge. /[id number]/MODL
[2018-04-26] MEDS ORDERED: RIVAROXABAN 20 MG TAB PO SCH (21:00)
--- NOTE | 2018-04-26 22:42 | ASMTLACE ---
LACE Length of stay for Answers: 7-13 days current admission Acuity / Level of Answers: Yes Care: Did the patient have an inpatient admission? Comorbidities - select Answers: Chronic pulmonary disease all that apply Congestive heart failure Other Notes: HTN, A-fib, ast hma # of Emergency department Answers: 1-2 visits in the last 6 months Score: 14 Date Signed: 04/26/2018 10:41 PM Electronically Signed By:Michelle Davis RN
--- NOTE | 2018-04-26 22:53 | ASMTDCNOTE ---
Case Management Discharge Discharge Order Complete? Answers: Yes Patient to Obtain Answers: Independently Medications Transportation Arranged Answers: [facility] W/C Transport will Pick (Date 04/26/2018 03:00 PM & Time) EMTALA Complete Answers: No Notes: N/A Case Management Transport Answers: Yes Notes: Facesheet printed for Form Complete [facility]. Discharge paperwor k sent via All[employer]; confirmed receipt with [facility]. Faxed Final Orders Answers: Yes Notes: Discharge orders and paperwork sent via All[employer]; confirmed receipt with [facility] Agency/Facility Transfer Answers: Yes Notes: Disharge orders and Report Printed & Faxed to paperwork sent via Receiving Agency [employer]; confirmed receipt with [facility] Family Notified Answers: Yes Notes: Pt notified his dghtr Discharge Comments Notes: Reviewed chart, spoke with Carla Benavidez NP. Pt to discharge home with home health care today. Call placed to [facility] ; spoke with [facility]. Per [facility], unsure if she can accept pt for start of care this week secondary to staffing issues. Explained current situation - that pt's dghtr, Michell, is currently open with [facility]. [facility] to speak with manager budget of [facility] regarding acceptance. Call received from [facility]; able to accept pt with a start of care for Friday04/28/18 (RN/PT/OT services). Update provided to pt. Address and phone number verified. Pt agreeable to homebound status. Discharge orders and paperwork sent via [employer]; confirmed receipt with [facility]. Pt requesting to return home via wheelchair van. Options discussed. Pt agreeable to $75.00 fee. Call placed to [facility], spoke with Garrett. Wheelchair transportation arranged with [facility] for 1500. Pt pre-paid $75.00 via [employer] over the phone. Per NAOMI Fried to mail pt a receipt. Updates provided to JUSTIN Hartman. IM signed, copy placed in chart. Pt to follow up as directed. CM available for any further issues or concerns. Discharge Plan: Home with [facility] (RN/PT/OT services) Date Signed: 04/26/2018 10:53 PM Electronically Signed By:Michelle Davis RN
--- NOTE | 2018-04-26 22:54 | ASDISCHSUM ---
Discharge Information Plan Status:Home with Home Health Medically Cleared to Leave:04/25/2018 Discharge Date:04/26/2018 03:24 PM CM D/C Disposition:Home Health Service [facility] D/C Disposition:[facility]NOT[facility] Projected Discharge Date:04/25/2018 11:00 AM Transportation at D/C:Wheelchair Van Discharge Delay Reason: Follow-Up Date:04/25/2018 11:00 AM Discharge Slot:2 - 12:01 pm - 18:00 pm Final Diagnosis:Bilateral hypdronephrosis, hematuria, bladder outlet obstruction, prostatomegaly Placement Information Referral Type:*Home Health Care Services Referral ID:[id number] Provider Name:[facility] ([facility]) Address 1:[address] [address] Address 2: City:[place] Selection Factors:Patient/Family Choice State:[place] Patient Contact Information Contact Name:KYLE Relationship:Daughter Address:[address] Work Phone: City:[place] Alternate Phone: [facility]/Zip Code:[place] [address] Email: Financial Information Financial Class:Medicare Primary Plan Desc:MEDICARE INPATIENT Primary Plan Number:[id number] Secondary Plan Desc: OUT OF [facility] Secondary Plan Number:[id number] Assessment Information LACE LACE Length of stay for Answers: 7-13 days current admission Acuity / Level of Answers: Yes Care: Did the patient have an inpatient admission? Comorbidities - select Answers: Chronic pulmonary disease all that apply Congestive heart failure Other Notes: HTN, A-fib, ast hma # of Emergency department Answers: 1-2 visits in the last 6 months Score: 14 Date Signed: 04/26/2018 10:41 PM Electronically Signed By:Michelle Davis RN [facility] CM Progress Note CM Note CM Note Notes: Pt presented to the ED for elevated Creatinine. Pt had called [facility] to his residence for hematuria, they did an iStat and his Cr was 2.3). Pt admitted for MARLEN, hematuria (possibly r/t UTI; pt is on Xarelto), bilateral hydronephrosis, and bladder outlet obstruction. Pt had a Blanchard placed and abdominal CT completed. Pt's PMH includes A-Fib, CHF, HTN, asthma. Pt is from [place], [place] but has been living with and caring for his daughter, Michell ([phone]), at her apartment/condo. Pt states he is Eulalia's primary caregiver due to her morbid obesity, fibromyalgia, etc. Pt states that Eulalia's cousin, Debbie, is coming up from [facility] to help her out during the day today but will not be able to stay with her tonight. Eulalia receives skilled HC RN/PT/OT through [facility] and also has a private [employer]S CAT[employer]OGER but they only are there during the day. Pt is concerned about being admitted and Eulalia not having anyone at home to help her get in and out of the bed, to the commode, etc. This CM has met Eulalia in the past and assisted her w/coordinating home care assistance, etc. Per pt's request, this CM called Eulalia and discussed that she would probably have to call non-skilled HC agencies and see if anyone was available to help the patient tonight, tomorrow and however long pt might be in the hospital; Eulalia is aware it will be private pay. This CM provided several non-skilled HC agencies' contact information to Eulalia. Pt appreciative of assistance w/contacting an Eulalia . Exact DC needs TBD. PT/OT evals ordered. CM to follow. Date Signed: 04/19/2018 02:36 PM Electronically Signed By:Baylee Banerjee RN [facility] Progress Note CM Note CM Note Notes: CM met with pt. Reports he is feeling better and reports concerns about uncertainty of plans with daughter moving forward. Pt reports Baylee CLOTEN from the ED was helpful in arranging home care for his daughter who needs 24hr care. Pt reports he started thinking more about his and her needs and is appreciative of support. CM provided education about Palliative Care and pt is very interested. CM requested order from . OT Rec: home with homecare vs SNF PT: pending eval Plan: HHC vs SNF with Palliative Care Date Signed: 04/21/2018 11:35 AM Electronically Signed By:YOGESH Gonsales [facility] Progress Note CM Note CM Note Notes: Plan of care reviewed with patient. He is an 87 year old male presenting with MARLEN secondary to hydronephrosis, Nephrostomy tubes place kidney function improving. He is a DNR and currently has been healthcare account manager for his daughter whom is nearly bed bound. I spoke with Eulalia and she requested [facility] referral be placed and that her own private PT would provide HHC as well. Per PT and OT HHC is recommended upon discharge, referral in allscripts to [facility] per request. After interviewing the patient, no clear reason for palliative care was indicated at this point as he reports that he feels his overall health has improved in the past 2 years caring for his daughter. Will discuss with Hospital medicine. Plan: Home with [facility] RN when medically cleared for discharge to home. Date Signed: 04/23/2018 02:37 PM Electronically Signed By:Susan Senkow, RN [facility] CM Progress Note CM Note CM Note Notes: Pts case discussed w/ Carla Benavidez NP. Marley from [facility] stopped by and visited w/ pt. Pt still has his tubes in. Pt will not d/c until they are removed. Pts daughter is current w/ [facility] as well. Caregivers are taking care of daughter while pt is in the hospital. CM to follow. Plan: Nicholas ; RN, OT Date Signed: 04/24/2018 02:19 PM Electronically Signed By:YOGESH Reid Case Management Discharge Plan Note Case Management Discharge Discharge Order Complete? Answers: Yes Patient to Obtain Answers: Independently Medications Transportation Arranged Answers: [facility] W[facility]C Transport will Pick (Date 04/26/2018 03:00 PM & Time) EMTALA Complete Answers: No Notes: N/A Case Management Transport Answers: Yes Notes: Facesheet printed for Form Complete [facility]. Discharge paperwor k sent via [employer]; confirmed receipt with [facility]. Faxed Final Orders Answers: Yes Notes: Discharge orders and paperwork sent via [employer]; confirmed receipt with [facility] Agency/Facility Transfer Answers: Yes Notes: Disharge orders and Report Printed & Faxed to paperwork sent via Receiving Agency [employer]; confirmed receipt with [facility] Family Notified Answers: Yes Notes: Pt notified his dghtr Discharge Comments Notes: Reviewed chart, spoke with Carla Benavidez NP. Pt to discharge home with home health care today. Call placed to [facility] ; spoke with [facility]. Per [facility], unsure if she can accept pt for start of care this week secondary to staffing issues. Explained current situation - that pt's dghtr, Michell, is currently open with [facility]. [facility] to speak with manager of financial of [facility] regarding acceptance. Call received from [facility]; able to accept pt with a start of care for Friday04/28/18 (RN/PT/OT services). Update provided to pt. Address and phone number verified. Pt agreeable to homebound status. Discharge orders and paperwork sent via [employer]; confirmed receipt with [facility]. Pt requesting to return home via wheelchair van. Options discussed. Pt agreeable to $75.00 fee. Call placed to [facility], spoke with Garrett. Wheelchair transportation arranged with [facility] for 1500. Pt pre-paid $75.00 via [employer] over the phone. Per NAOMI Fried to mail pt a receipt. Updates provided to JUSTIN Hartman. IM signed, copy placed in chart. Pt to follow up as directed. CM available for any further issues or concerns. Discharge Plan: Home with [facility] (RN/PT/OT services) Date Signed: 04/26/2018 10:53 PM Electronically Signed By:Michelle Davis RN Intervention Information Intervention Type:*IM-Signed Date of Service:04/24/2018 03:45 PM Patient Type:Inpatient Staff Member:Yeni Noguera Hours: Discipline: Severity: Comment: Intervention Type:*IM-Signed Date of Service:04/26/2018 10:39 PM Patient Type:Inpatient Staff Member:JUSTIN Davis Taylor Hours: Discipline: Severity: Comment:
[2018-04-27] MEDS ORDERED: VALSARTAN 160 MG TAB PO SCH (09:00)
== END 2018-04-26 15:24 | disposition home health service (06) | DRG 726 ==
LOC: F3E 12:33
PROVIDERS: ADMIT Student in an Organized Health Care Education/Training Program; ATTEND Student in an Organized Health Care Education/Training Program
DX: N40.1 Benign prostatic hyperplasia with lower urinary tract symptoms (principal); N13.39 Other hydronephrosis; N13.8 Other obstructive and reflux uropathy; R33.8 Other retention of urine; N32.0 Bladder-neck obstruction; N17.9 Acute kidney failure, unspecified; N39.0 Urinary tract infection, site not specified; E87.6 Hypokalemia; K59.00 Constipation, unspecified; I11.0 Hypertensive heart disease with heart failure; I50.20 Unspecified systolic (congestive) heart failure; I48.91 Unspecified atrial fibrillation; Z79.01 Long term (current) use of anticoagulants; J45.909 Unspecified asthma, uncomplicated
CPT/HCPCS: 96365; 97116-GP; 97162-GP; 97166-GO; 97530-GO; 97530-GP; 97535-GO; C1729; C1769; G0009; J0690; J0696; J1170; J1644; J2250; J2704; J3010; Q9967

== ENCOUNTER → 2018-05-06 | Outpatient (CLI) | payer OTHER, BC | LOC: FIMAGING 14:15 | PROVIDERS: ATTEND Urology | DX: N32.0 Bladder-neck obstruction (principal) ==

== ENCOUNTER 2018-06-11 07:23 | Observation (INO) | payer OTHER, BC ==
[2018-06-11] MEDS ORDERED: ceFAZolin 2 GM/DEXTROSE 100 ML IV ONE (07:41)
[2018-06-11] MEDS ORDERED: LR 1,000 ML IV ONE (07:41)
[2018-06-11] MEDS ORDERED: LIDOCAINE 2% JELLY 20 ML (UROJECT) ONE (07:53)
[2018-06-11] MEDS ORDERED: OPIUM/BELLADONNA ALKALO SUPP PR ONE (07:54)
[2018-06-11] MEDS ORDERED: fentaNYL 100 MCG/2 ML INJ ONE ×2 (08:01→10:42)
[2018-06-11] MEDS ORDERED: DEXAMETHASONE 4 MG/ML VIAL ONE (08:01)
[2018-06-11] MEDS ORDERED: LIDOCAINE 2% 5 ML SDV ONE (08:01)
[2018-06-11] MEDS ORDERED: ONDANSETRON 4 MG/2 ML VIAL ONE (08:01)
[2018-06-11] MEDS ORDERED: PROPOFOL 200 MG/20 ML VIAL ONE (08:02)
--- NOTE | 2018-06-11 08:48 | PDHPUP ---
History & Physical Update H&P update statement: This history and physical update is based on an assessment of the patient which was completed after admission or registration (within 24 hours), but prior to the surgery/procedure. H&P update: H&P reviewed & patient examined, no change in patient's condition since H&P completed
[2018-06-11] MEDS ORDERED: METOCLOPRAMIDE 10 MG/2 ML VIAL IVP PRN (08:56)
[2018-06-11] MEDS ORDERED: PROMETHAZINE HCL 25 MG/ML INJ IVP PRN (08:56)
[2018-06-11] MEDS ORDERED: MEPERIDINE 25 MG/0.5 ML AMP IVP PRN (08:56)
[2018-06-11] MEDS ORDERED: NALOXONE HCL 0.4 MG/ML INJ IVP PRN (08:56)
[2018-06-11] MEDS ORDERED: LR 500 ML IV PRN (08:56)
[2018-06-11] MEDS ORDERED: HYDROmorphONE/DILAUDID 2 MG/ML INJ IVP PRN (08:56)
[2018-06-11] MEDS ORDERED: oxyCODONE IR 5 MG TAB PO PRN (08:56)
[2018-06-11] MEDS ORDERED: fentaNYL 100 MCG/2 ML INJ IVP PRN (08:56)
[2018-06-11] MEDS ORDERED: PHENYLEPHRINE HCL 100 MCG/ML SYR IVP PRN (08:56)
[2018-06-11] MEDS ORDERED: ONDANSETRON 4 MG/2 ML VIAL IVP PRN ×2 (08:56→11:39)
--- NOTE | 2018-06-11 08:56 | PDANEPAE ---
ANE Past Medical History - Cardiovascular History Hx Hypertension: Yes Hx Arrhythmias: Yes Hx Chest Pain: No Hx Coronary Artery / Peripheral Vascular Disease: No Hx CHF / Valvular Disease: Yes Hx Palpitations: No Cardiovascular History Comment: Afib. Hx of CHF, resolved with most recent EF 50% - Pulmonary History Hx COPD: No Hx Asthma/Reactive Airway Disease: No Hx Recent Upper Respiratory Infection: No Hx Oxygen in Use at Home: No Hx Sleep Apnea: No Sleep Apnea Screening Result - Last Documented: Positive - Neurologic History Hx Cerebrovascular Accident: No Hx Seizures: No Hx Dementia: No - Endocrine History Hx Diabetes: No - Renal History Hx Renal Disorders: Yes Renal History Comment: bilat hydronephrosis CKD to see fuse spooler in june - Liver History Hx Hepatic Disorders: No - Neurological & Psychiatric Hx Hx Neurological and Psychiatric Disorders: No - Cancer History Hx Cancer: No - Congenital Disorder History Hx Congenital Disorders: No - GI History Hx Gastrointestinal Disorders: No - Other Health History Other Health History: IQUGMIUT NEED HEARING AIDS. Bruises easily - Chronic Pain History Chronic Pain: No - Surgical History Prior Surgeries: bilat nephostomy tubes 2019. nasal poypsurgery 2010 ANE Review of Systems Review of Systems: - Exercise capacity METS (RN): 4 METS ANE Patient History - Allergies Allergies/Adverse Reactions: aminophylline Allergy (Verified 06/04/18 14:47) aspirin Allergy (Verified 06/04/18 14:47) Sulfa (Sulfonamide Antibiotics) Allergy (Verified 06/04/18 14:47) - Home Medications Home Medications: Bumetanide [Bumex (*)] 04/19/18 [Last Taken 06/10/18 09:00] Carvedilol [Coreg (*)] 04/19/18 [Last Taken 06/10/18 09:00] Cholecalciferol Vit D3 [Vitamin D3 2000 units tab (OTC)] 04/19/18 [Last Taken 06/04/18] Cyanocobalamin [Vitamin B12 (*)] 04/19/18 [Last Taken 06/04/18] Herbals/Supplements -Info Only 04/19/18 [Last Taken 06/04/18] Potassium Chloride 04/19/18 [Last Taken 06/10/18 09:00] Rivaroxaban [Xarelto] 04/19/18 [Last Taken 06/07/18] Sotalol HCl [Betapace 80 MG (*)] 04/19/18 [Last Taken 06/10/18 09:00] Valsartan 04/19/18 [Last Taken 06/10/18 09:00] Acetaminophen [Tylenol 325mg (*)] 06/04/18 [Last Taken 04/30/18] Cefadroxil 500 mg PO BID 06/11/18 [Last Taken 06/10/18 21:00] - NPO status NPO Since - Liquids (Date): 06/10/18 NPO Since - Liquids (Time): 18:00 NPO Since - Solids (Date): 06/10/18 NPO Since - Solids (Time): 18:00 - Smoking Hx Smoking Status: Former smoker - Family Anes Hx Family Hx Anesthesia Complications: none ANE Labs/Vital Signs - Vital Signs Blood Pressure: 157/82 Heart Rate: 71 Respiratory Rate: 9 O2 Sat (%): 94 Height: 175.26 cm Weight: 92.533 kg ANE Physical Exam - Airway Neck exam: FROM Mallampati Score: Class 1 Mouth exam: normal dental/mouth exam - Pulmonary Pulmonary: no respiratory distress, no rales or rhonchi, clear to auscultation - Cardiovascular Cardiovascular: regular rate and rhythym, no murmur, rub, or gallop - ASA Status ASA Status: III ANE Anesthesia Plan Anesthesia Plan: GA w LMA
[2018-06-11] MEDS ORDERED: ePHEDrine SULFATE 25 MG/5 ML SYR ONE (09:50)
[2018-06-11] MEDS ORDERED: HYDROCODONE/APAP 5/325 TAB PO PRN (11:39)
[2018-06-11] MEDS ORDERED: HYDROmorphONE/DILAUDID 1 MG/ML INJ IVP PRN (11:39)
[2018-06-11] MEDS ORDERED: OPIUM/BELLADONNA ALKALO SUPP PR PRN (11:39)
--- NOTE | 2018-06-11 11:39 | POSTOPPROG ---
Post Op Note Date of Operation: 06/11/18 Surgeon: Rachel Argueta Anesthesiologist: Shaina Anesthesia: GET(General Endotracheal) Pre-op Diagnosis: BPH w bladder outlet obstruction Post-op Diagnosis: same Indication: BPH w bladder outlet obstruction Procedure: cystoscopy, TURP in saline Findings: trilobar hypertrophy Inf/Abcess present in the surg proc area at time of surgery?: No EBL: 100-500 Complications: None, patient tolerated procedure well Drains: Other (muller) Specimen(s): Prostate chips
--- NOTE | 2018-06-11 12:55 | GOP ---
[f rep st] OPERATIVE REPORT DATE OF OPERATION: 06/11/2018 SURGEON: Rachel Argueta MD ANESTHESIA: General. ANESTHESIOLOGIST: Dr. Merritt PREOPERATIVE DIAGNOSIS: Benign prostatic hypertrophy with trilobar hypertrophy and bladder outlet obstruction. POSTOPERATIVE DIAGNOSIS: Benign prostatic hypertrophy with trilobar hypertrophy and bladder outlet obstruction. PROCEDURE PERFORMED: Cystoscopy and transurethral resection of prostate in saline. FINDINGS: Trilobar hypertrophy. SPECIMENS: Prostate chips. ESTIMATED BLOOD LOSS: 125 mL. INDICATIONS: The patient presented to my office for management of his bladder outlet obstruction. He underwent a cystoscopy in my office showing trilobar hypertrophy and he has been managed with a Blanchard catheter since about February, so he was cleared for surgery for a gold standard TURP . The rationale, risks, and benefits were bleeding, infection, pain, injury to the urethra bladder or ureter, need for subsequent procedures, risk of bladder neck contracture, or urethral stricture. He understood these risks do not outweigh the benefits of a TURP and he agreed to proceed. DESCRIPTION OF PROCEDURE: The patient was taken back to the operating room, placed on the operating room table in supine position. General anesthesia induced without complication. Time-out performed. Core measures satisfied, including placement of a Sania Hugger, SCDs, and administration of Ancef antibiotics. He was brought to the end of the table, placed in dorsal lithotomy position. All pressure points padded. Genitalia draped and prepped in the standard surgical fashion with Betadine. Rigid visual obturator easily cannulated the urethral meatus and was advanced atraumatically with direct vision into the bladder. Resectoscope was assembled. The ureteral orifices were identified and resection began well away from the ureteral orifices at the 5 and 7 o'clock positions back toward the veru , then, the central zone tissue, which was highly obstructing was resected along the posterior aspect of the prostate back to the veru. Once this was complete, then the left lateral lobe, then the right lateral lobe, and then anterior tissue was resected. I kept in my vision throughout on the veru as to make sure to did not violate the structure. I also knew where the ureteral orifices were during the entire procedure, and at no point did I violate these structures. I used cautery liberally throughout the procedure to maintain hemostasis. Obi evacuator was used to remove the chips. I did remove chips, and then resect more tissue several times as his prostate was very large and it required multiple times of removing tissue. At the end of the procedure, hemostasis was excellent. All the prostate chips have been removed. The ureteral orifices were again evaluated and were untouched, and the veru was not violated, and he was wide open into the bladder, and at this point, I was very pleased with the resection. He did well during the whole procedure. At the end, I removed the resectoscope , placed a lidocaine jelly, and then 24-Pashto 3-way Blanchard catheter with return of light pink urine. I irrigated the catheter multiple times and irrigant was clear. I connected it to a drainage bag, placed a belladonna and opium suppository per rectum. I then did also place a StatLock. Procedure was now considered completed. He was awoken from anesthesia and transferred to PACU in good condition. DRAINS: Blanchard. COMPLICATIONS: None. The patient tolerated the procedure well. /[id number]/MODL MTDD
[2018-06-11] MEDS: ACETAMINOPHEN 325 MG TAB PO SCH ×2 (13:53→18:07)
[2018-06-11] MEDS: POLYETHYLENE GLYCOL 3350 17 GM PKT PO SCH (13:58)
[2018-06-11] MEDS: D5W LR 1,000 ML IV SCH (16:03)
[2018-06-11] MEDS: CEPHALEXIN 500 MG CAP PO SCH ×2 (16:14→21:26)
[2018-06-11] MEDS: SOTALOL HCL 80 MG TAB PO SCH (20:35)
[2018-06-11] MEDS: SENNOSIDES/DOCUSATE SODIUM TAB PO SCH (20:35)
[2018-06-12] MEDS: ACETAMINOPHEN 325 MG TAB PO SCH ×3 (00:41→11:41)
[2018-06-12] MEDS: D5W LR 1,000 ML IV SCH ×2 (02:02→11:29)
--- NOTE | 2018-06-12 07:45 | SOAPPROG ---
SOAP Progress Note Assessment/Plan: Assessment: postop TURP Day 1 Plan: Hold CBI, ambulate, if urine remains clear, then OK to DC. IF urine becomes red, then will need to resume CBI and hold DC until urine remains consistently clear/light pink. Muller removal on Friday06/15/18. 06/12/18 07:42 Subjective: Doing well, no complaints. Elijah diet. Has not ambulated. Objective: Vital Signs Temp Pulse Resp BP Pulse Ox 36.6 C 63 16 96/52 L 90 L 06/12/18 04:01 06/12/18 04:01 06/12/18 04:01 06/12/18 04:01 06/12/18 04:01 06/11/18 06/12/18 06/13/18 05:59 05:59 05:59 Intake Total 3643 Output Total 10 3250 Balance 3633 -3250 Gen NAD A&O CV regular Lungs Normal effort Abd soft Ext warm, SCDs, MIGDALIA hose urine clear in muller tube, CBI very slow gtt, muller in place, stat lock. Discussed w nursing replacing stat lock so muller not on tension. ICD10 Worksheet Patient Problems: Problems Problem Status Onset Acute kidney injury Acute Bladder outlet obstruction Acute Urinary tract infection Acute
[2018-06-12] MEDS ORDERED: BUMETANIDE 1 MG TAB PO SCH (09:00)
[2018-06-12] MEDS ORDERED: VALSARTAN 160 MG TAB PO SCH (09:00)
[2018-06-12] MEDS ORDERED: CARVEDILOL 6.25 MG TAB PO SCH (09:00)
[2018-06-12] MEDS: SENNOSIDES/DOCUSATE SODIUM TAB PO SCH (09:33)
[2018-06-12] MEDS: SOTALOL HCL 80 MG TAB PO SCH (09:33)
[2018-06-12] MEDS: CEPHALEXIN 500 MG CAP PO SCH (09:33)
[2018-06-12] MEDS: POLYETHYLENE GLYCOL 3350 17 GM PKT PO SCH (09:33)
[2018-06-12 09:52] VITALS: BP 138/72
--- NOTE | 2018-06-12 11:39 | ASMTCMCOM ---
CM Note CM Note Notes: Pt is a 88 yo M who is the caregiver for his daughter. Pt was last discharged from [facility] on 04/26 with [facility]. Pt reports that he has "graduated" from homecare and knows how to care for himself at home and does not have any issues ambulating. Pt reports he does not feel like he needs homecare at discharge and reports he is able to care for his RN needs independently. CM discussed discharge plan with pt and RN. Depending on how pt progresses today with output pt will likely be discharged independently. CM available if needs arise. Date Signed: 06/12/2018 11:38 AM Electronically Signed By:YOGESH Gonsales
--- NOTE | 2018-06-12 16:11 | ASDISCHSUM ---
Discharge Information Plan Status:Hospice-Home Medically Cleared to Leave:06/12/2018 Discharge Date:06/12/2018 04:03 PM CM D/C Disposition:Home, Routine, Self-Care ADT D/C Disposition:Home, Routine, Self-Care Projected Discharge Date:06/12/2018 12:00 AM Transportation at D/C:Taxicab Discharge Delay Reason: Follow-Up Date:06/12/2018 12:00 AM Discharge Slot:2 - 12:01 pm - 18:00 pm Final Diagnosis:status post TURP Placement Information Patient Contact Information Contact Name:KYLE Relationship:Daughter Address:[address] [address] Work Phone: [facility]:[place] Alternate Phone: [facility]/Zip Code:[place] [address] Email: Financial Information Financial Class:Medicare Primary Plan Desc:MEDICARE OUTPATIENT Primary Plan Number:[id number] Secondary Plan Desc:[facility] Secondary Plan Number:[id number] Assessment Information [facility] CM Progress Note CM Note CM Note Notes: Pt is a 88 yo M who is the caregiver for his daughter. Pt was last discharged from [facility] on 04/26 with [facility]. Pt reports that he has "graduated" from homecare and knows how to care for himself at home and does not have any issues ambulating. Pt reports he does not feel like he needs homecare at discharge and reports he is able to care for his RN needs independently. CM discussed discharge plan with pt and RN. Depending on how pt progresses today with output pt will likely be discharged independently. CM available if needs arise. Date Signed: 06/12/2018 11:38 AM Electronically Signed By:YOGESH Gonsales Intervention Information
== END 2018-06-12 16:03 | disposition hospice, home (50) ==
LOC: FSGY 07:23 → F3E 11:40 → F1N 12:48
PROVIDERS: ADMIT Urology; ATTEND Urology
PROC: 0VB08ZZ Excision of Prostate, Via Natural or Artificial Opening Endoscopic (ICD-10-PCS; principal; 2018-06-11 09:30)
DX: N40.1 Benign prostatic hyperplasia with lower urinary tract symptoms (principal); R33.8 Other retention of urine; N13.8 Other obstructive and reflux uropathy; I10 Essential (primary) hypertension; I48.91 Unspecified atrial fibrillation
CPT/HCPCS: 52601; J0690; J1100; J2405; J2704; J3010

== ENCOUNTER 2018-06-14 15:12 | Emergency (ER) | payer OTHER, BC ==
--- NOTE | 2018-06-14 15:56 | EDPHY ---
H & P Time Seen by Provider: 06/14/18 15:28 HPI/ROS: CHIEF COMPLAINT: Weight gain HISTORY OF PRESENT ILLNESS: The patient is an 88-year-old male with a history of CHF on Bumex who presents emergency department with weight gain. The patient underwent a TURP last . Procedure went well. He was discharged the next day. He states when he came into the hospital he weighed 204 lb. He now weighs 215 lb. He denies any increased pedal edema. He has pedal edema baseline and is unchanged. He has no chest pain or shortness of breath. No fatigue. No dyspnea on exertion. Patient states he is feeling well. REVIEW OF SYSTEMS: 10 systems were reveiwed and are negative with the exception of the elements mentioned in the history of present illness. Past Medical/Surgical History: Includes CHF, atrial fibrillation, hypertension Past surgical history: Includes TURP Social history: Patient does not smoke Smoking Status: Former smoker Physical Exam: Vitals noted. Afebrile. Saturation is 98%. GENERAL: Well-appearing, in no acute distress, alert. HEENT: Eyes normal to inspection, normal pharynx, no signs of dehydration. NECK: Normal, supple. RESPIRATORY: Clear to auscultation bilaterally, no rales, rhonchi or wheezing. CVS: Regular rate and rhythm, no rubs, murmurs, or gallops. ABDOMEN: Soft, nontender, nondistended, no organomegaly. : Blanchard in place. No discharge. BACK: Normal to inspection, no CVA tenderness. SKIN: Normal color, no rash, warm, dry. No pallor. EXTREMITIES: Bilateral +2 pedal edema (baseline per patient, no calf tenderness , no Homans sign or cords, no joint swelling. NEURO/PSYCH: Alert and oriented, normal mood and affect, normal motor sensory exam. Constitutional: Initial Vital Signs Temperature (C) 36.4 C 06/14/18 15:19 Heart Rate 66 06/14/18 15:19 Respiratory Rate 16 06/14/18 15:19 Blood Pressure 168/91 H 06/14/18 15:19 O2 Sat (%) 98 06/14/18 15:19 O2 Delivery Mode Room Air Allergies/Adverse Reactions: aminophylline Allergy (Verified 06/04/18 14:47) aspirin Allergy (Verified 06/04/18 14:47) Sulfa (Sulfonamide Antibiotics) Allergy (Verified 06/04/18 14:47) Home Medications: Medication Instructions Recorded Bumetanide [Bumex (*)] 1 mg PO BIDMEAL 04/19/18 Carvedilol [Coreg (*)] 6.25 mg PO BID 04/19/18 Cholecalciferol Vit D3 [Vitamin D3 2,000 units PO HS 04/19/18 2000 units tab (OTC)] Potassium Chloride 20 meq PO TID 04/19/18 Sotalol HCl [Betapace 80 MG (*)] 80 mg PO BID 04/19/18 Rivaroxaban [Xarelto] 20 mg PO HS #1 tab 06/12/18 Coq-10 06/14/18 Magnesium 06/14/18 l-Arginine 06/14/18 Medical Decision Making - Diagnostics Imaging Results: Imaging Impressions Chest X-Ray 06/14/18 16:26 Impression: 1. Hypoventilation and left basilar atelectasis. 2. Cardiomegaly. No failure. 3. Kyphosis, demineralization, and numerous age indeterminate compression fractures, likely old. ED Course/Re-evaluation: In the emergency department I discussed possible etiologies with the patient. I answered all his questions. IV was placed. Laboratory studies, EKG and chest x-ray were ordered. CBC and chemistry unremarkable. Patient did have a BNP. This was not a rule in value of BNP. Chest x-ray: Cardiomegaly. No other acute disease. I discussed the results with the patient. I answered all his questions. Patient is comfortable discharge. He will follow up with his primary care physician as well as Dr. Tolbert I discussed the case with Dr. Tolbert. She agrees with the plan. Differential Diagnosis: My differential includes but is not limited to 3rd spacing, CHF, electrolyte abnormality, sugar abnormality, dysrhythmia - Data Points Laboratory Results: Laboratory Results 06/14/18 15:12 06/14/18 15:12 06/14/18 06/14/18 15:12 15:12 WBC 9.35 10^3/uL 10^3/uL (3.80-9.50) RBC 3.98 10^6/uL L 10^6/uL (4.40-6.38) Hgb 12.2 g/dL L g/dL (13.7-17.5) Hct 37.3 % L % (40.0-51.0) MCV 93.7 fL fL (81.5-99.8) MCH 30.7 pg pg (27.9-34.1) MCHC 32.7 g/dL g/dL (32.4-36.7) RDW 13.1 % % (11.5-15.2) Plt Count 138 10^3/uL L 10^3/uL (150-400) MPV 10.5 fL fL (8.7-11.7) Neut % (Auto) 66.1 % % (39.3-74.2) Lymph % (Auto) 20.9 % % (15.0-45.0) [place] % (Auto) 9.0 % % (4.5-13.0) Eos % (Auto) 3.2 % % (0.6-7.6) Baso % (Auto) 0.3 % % (0.3-1.7) Nucleat RBC Rel Count 0.0 % % (0.0-0.2) Absolute Neuts (auto) 6.18 10^3/uL 10^3/uL (1.70-6.50) Absolute Lymphs (auto) 1.95 10^3/uL 10^3/uL (1.00-3.00) Absolute Monos (auto) 0.84 10^3/uL H 10^3/uL (0.30-0.80) Absolute Eos (auto) 0.30 10^3/uL 10^3/uL (0.03-0.40) Absolute Basos (auto) 0.03 10^3/uL 10^3/uL (0.02-0.10) Absolute Nucleated RBC 0.00 10^3/uL 10^3/uL (0-0.01) Immature Gran % 0.5 % % (0.0-1.1) Immature Gran # 0.05 10^3/uL 10^3/uL (0.00-0.10) Sodium 139 mEq/L mEq/L (135-145) Potassium 3.7 mEq/L mEq/L (3.5-5.2) Chloride 105 mEq/L mEq/L (97-110) Carbon Dioxide 29 mEq/l mEq/l (22-31) Anion Gap 5 mEq/L L mEq/L (6-14) BUN 22 mg/dL mg/dL (7-23) Creatinine 1.3 mg/dL mg/dL (0.7-1.3) Estimated GFR 52 Glucose 93 mg/dL mg/dL (70-100) Calcium 8.5 mg/dL mg/dL (8.5-10.4) NT-Pro-B Natriuret Pep 1260 pg/mL H pg/mL (0-450) Departure - Departure Disposition: Home, Routine, Self-Care Clinical Impression: Weight gain Condition: Good Instructions: Heart Failure (ED) Additional Instructions: Return with increasing chest pain, shortness of breath, swelling or any other concerns. Referrals: Carol Sebastian MD [Primary Care Provider] - 2-3 days without fail Rachel Tolbert MD [Medical Doctor] - 5-7 days, call for appt.
[2018-06-14 16:48] LABS: PLATELET COUNT 138 10^3/uL (150-400)
[2018-06-14 17:59] VITALS: BP 145/71
--- NOTE | 2018-06-14 23:07 | CPEKG ---
Test Reason : OPEN Blood Pressure : / mmHG Vent. Rate : 061 BPM Atrial Rate : 060 BPM P-R Int : 207 ms QRS Dur : 172 ms QT Int : 499 ms P-R-T Axes : 030 -31 -03 degrees QTc Int : 503 ms Sinus rhythm Right bundle branch block Confirmed by Antonio Mars [id number] on 06/14/2018 11:06:56 PM Referred By: ANTONIO MARS Confirmed By:Antonio Mars
== END 2018-06-14 17:58 | disposition home or self-care (01) ==
LOC: EDUNIT#
DX: R63.5 Abnormal weight gain (principal); Z98.890 Other specified postprocedural states; Z86.79 Personal history of other diseases of the circulatory system; Z87.891 Personal history of nicotine dependence

== ENCOUNTER → 2018-07-01 | Outpatient (CLI) | payer OTHER, BC | LOC: FIMAGING 12:34 | PROVIDERS: ATTEND Urology | DX: N45.3 Epididymo-orchitis (principal); N43.3 Hydrocele, unspecified ==